=== PATIENT | male | born 1980 | race Two or more races ===

== ENCOUNTER 2025-09-11 18:32 | Emergency (ER) | payer MEDICAID, SELFPAY ==
[2025-09-11 18:33] VITALS: BMI 26.9
[2025-09-11 18:54] VITALS: BP 141/89; PULSE 102; RESP 18; TEMP 37.1; O2SAT 97
--- NOTE | 2025-09-11 19:31 | XR_ITS ---
Examination: CT abdomen and pelvis without contrast. Coronal 3-D reconstructions. Sagittal 2-D reconstructions. Date and time of exam: September 11, 2025, 195 hours INDICATIONS: Onset left flank pain beginning 2 days ago CTDI: vol (mGy): 6.08 DLP: (mGycm): 358 Technique: Axial images of the abdomen have been obtained, 3 mm slice thickness Intravenous contrast material has not been administered. Low dose protocols were performed. One or more of the following dose reduction techniques were used; automated exposure control, adjustment of the mA and/or KV according to patient size, use of iterative reconstruction technique. Findings: Fatty infiltration throughout the liver no focal liver or splenic lesions No gallstones No pancreatic or adrenal mass 9 mm mass with calcification posterior left kidney image 111 No renal or ureteral calculi, no hydronephrosis Aorta normal size Subcentimeter para-aortic lymph nodes Normal appendix Colonic diverticulosis Acute diverticulitis sigmoid colon no peridiverticular abscess Contracted urinary bladder IMPRESSION: Acute diverticulitis sigmoid colon, no peridiverticular abscess Recommend elective MRI abdomen kidneys follow-up to assess 9 mm mass posterior left kidney
--- NOTE | 2025-09-11 19:36 | PD.EDABDPN ---
ED Abdominal Pain RME/HPI General Chief Complaint: Abdominal Pain Stated complaint: LLQ ABD PAIN X2 DAYS WITH FEVER YESTERDAY Time seen by provider: 09/11/25 19:30 Arrival date/time: 09/11/25 18:32 45M with no significant PMH presents to ED with L flank pain for 2 days that is improved with urination. No dysuria/hematuria. Fever of 103 yesterday, but none today. No recent antipyretics. Patient denies groin pain. Limitations: no limitations Related Data Previous Rx's ?Medication ?Instructions ?Recorded amoxicillin 875 mg-potassium 1 tab PO BID 10 days #20 tabs 09/11/25 clavulanate 125 mg tablet ondansetron 4 mg disintegrating 4 mg PO Q8H PRN nausea and 09/11/25 tablet vomiting #14 tabs Allergies Allergy/AdvReac Type Severity Reaction Status Date / Time No Known Allergies Allergy Verified 09/11/25 18:35 Review of Systems Review of Systems Systems Reviewed: All systems reviewed, normal except as documented Genitourinary Genitourinary: Reports as per HPI and Reports flank pain Past Medical History Social History SMOKING STATUS: Never smoker ED Exam General Limitations: Present no limitations General appearance: Present alert and in no apparent distress Head Head exam: Present atraumatic Neck Neck exam: Present normal inspection, full ROM and trachea midline Chest Chest inspection: Present normal inspection and symmetric chest wall rise Abdominal Exam Abdominal exam: Present soft; Absent tenderness Back Exam Back exam: Present normal inspection and full ROM Neurological Exam Neurological exam: Present alert and oriented X3 Psychiatric Psychiatric exam: Present normal affect and normal mood Skin Skin exam: Present warm, dry, intact and normal color Course Quality Measures none Orders Category Date Time Status CT abdomen pelvis wo con Stat Exams 09/11/25 19:31 Completed CBC Stat Lab 09/11/25 19:34 Completed CMP [Comprehensive Metabolic Panel] Stat Lab 09/11/25 19:34 Completed Drug Screen,Urine Stat Lab 09/11/25 20:33 Received Lactate (Lactic Acid) Stat Lab 09/11/25 19:34 Completed Lipase Stat Lab 09/11/25 19:34 Completed Procalcitonin Stat Lab 09/11/25 19:34 Completed Urinalysis, C/S if Indicated Stat Lab 09/11/25 20:33 Completed Amoxicillin/Pot Clav 875 [Augmentin 875] Med 09/11/25 20:59 Discontinued 1 tab PO X1 ONE Vital Signs Vital signs: Vital Signs Temperature 98.7 F 09/11/25 18:54 Pulse Rate 102 H 09/11/25 18:54 Respiratory Rate 18 09/11/25 18:54 Blood Pressure 141/89 H 09/11/25 18:54 Pulse Oximetry (%) 97 09/11/25 18:54 Oxygen Delivery Method Room Air 09/11/25 18:54 O2 at 97% on RA and WNLs Abdominal Pain MDM MDM Narrative MDM Narrative:: 45M with no significant PMH presents to ED with L flank pain for 2 days that is improved with urination. No dysuria/hematuria. Fever of 103 yesterday, but none today. No recent antipyretics. Patient denies groin pain. Physical exam reveals no ab or CVA tenderness. Patient is afebrile, calm, and alert. CT diverticulitis w/ incidental finding of kidney mass. Moderate leukocytosis. Procal/lactate normal. UA clean though moderate dehydration. CMP unremarkable. Meds and certified travel counselor given, including to see PCP for outpatient MRI. Patient data External records reviewed:: None Clinical information provided by:: patient Social determinants that could affect healthcare access:: none Patient has the following chronic illnesses:: none How is presenting disease/condition affected by chronic disease/condition?: no chronic disease Evaluation data The following diagnostics were reviewed and interpreted by me:: lab results and radiology exam(s) Lab and/or radiology exams considered but not ordered:: ordered Interpretation Summary: above Medications / Prescriptions Medications or Prescriptions considered but not ordered:: ordered Medication administrations:: Medication Administration History Discontinued Medications Amoxicillin/Clavulanate Potassium (Amoxicillin/Pot Clav 875 Tablet) 1 tab PO X1 ONE Stop: 09/11/25 21:00 above Consultations Consultation(s) initiated? (list below): No Diagnosis Differential diagnosis abdominal pain: abdominal pain, acute appendicitis, calculus of kidney, constipation, diverticulitis, gastroenteritis, pancreatitis, small bowel obstruction and other (kidney mass) Most likely diagnosis given after review of the tests above:: diverticulitis and kidney mass Admission Indicated Admission indicated?: not indicated Admission Request Was there a request for admission?: No Disposition Plan Disposition Plan: Discharge Discharge Attestation Discharge Attestation: The patient and all family members were given an opportunity to ask questions and understood the discharge instructions. Discharge instructions specifically effects, indications for sooner follow up or return to the emergency department, and the expected course of current diagnosis. Patient condition: Stable Discharge Plan Plan Patient Disposition: HOME (Self Care) Discharge Disposition comment: Stable Prescriptions/Referrals Prescriptions/Med Rec: New ondansetron 4 mg tablet,disintegrating 4 mg PO Q8H PRN (Reason: nausea and vomiting) Qty: 14 0RF amoxicillin-pot clavulanate 875-125 mg tablet 1 tab PO BID 10 Days Qty: 20 0RF Referrals: No Primary/Family,Physician [Primary Care Provider] - In 1 week Problem List Clinical Impression: Diverticulitis, Kidney mass Patient/Caregiver Discharge Instructions Education Materials: ED Diverticulitis Additional Instructions: Please follow-up with PCP within 24-48 hours and return immediately if symptoms worsen. Ibuprofen/Tylenol can be used simultaneously for greater fever/pain control. F Keep hydrated. Advance diet as tolerated. Print Language: [place] Stand Alone Forms: Patient Portal Info Letter KATHY/JEROME Supervising Physician KATHY/JEROME Supervising Physician: Dr. De La Cruz
[2025-09-11 19:49] LABS: Lactate (Lactic Acid) 1.0 mMol/L (0.4-2.0)
[2025-09-11 19:50] LABS: Basophils # (Auto) 0.0 Thou/mm3 (0.0-0.2); Basophils % (Auto) 0 % (0-2.5); Eosinophils # (Auto) 0.0 Thou/mm3 (0.0-0.5); Eosinophils % (Auto) 0 % (0-10); Hematocrit 42.9 % (41.0-53.0); Hemoglobin 15.0 g/dL (13.5-16.0); Immature Granulocytes Auto 0.07 Thou/mm3 (0.00-0.00); Lymphocytes # (Auto) 2.1 Thou/mm3 (1.0-4.8); Lymphocytes % (Auto) 11 % (10-50); Mean Corpuscular HGB Conc 35.0 g/dl (31.0-37.0); Mean Corpuscular Hemoglobin 28.7 pg (25.0-35.0); Mean Corpuscular Volume 82 fL (80-100); Monocytes # (Auto) 1.3 Thou/mm3 (0.0-0.8); Monocytes % (Auto) 7 % (0-12); Neutrophils # (Auto) 15.0 Thou/mm3 (1.8-7.7); Neutrophils % (Auto) 81 % (37-80); Nucleated Red Blood Cell # 0.00 Thou/mm3 (0.00-0.00); Nucleated Red Blood Cell % 0 /100 WBC (0); Platelet Count 279 Thou/mm3 (140-440); RDW Standard Deviation 39.5 fL (35.1-43.9); Red Blood Count 5.23 Miln/mm3 (4.50-5.90); White Blood Count 18.5 Thou/mm3 (3.8-10.6)
[2025-09-11 20:17] LABS: Alanine Aminotransferase 24 U/L (10-49); Albumin, Serum 4.9 gm/dL (3.5-5.0); Albumin/Globulin Ratio 2.0 (1.2-2.2); Alkaline Phosphatase 107 U/L (46-116); Anion Gap 9 (7-16); Aspartate Amino Transferase 16 U/L (0-34); BUN/Creatinine Ratio 12 Ratio (12-20); Bilirubin,Total 1.1 mg/dL (0.3-1.2); Blood Urea Nitrogen 11 mg/dL (9-23); Calcium 9.2 mg/dL (8.3-10.6); Calcium (Corrected) 9.2 mg/dL (8.5-10.1); Carbon Dioxide 27.3 mMol/L (20.0-31.0); Chloride 104 mMol/L (98-107); Creatinine (Component) 0.9 mg/dL (0.6-1.3); Estimated Creatinine Clearance 92.4 mL/min (>60); Globulin 2.5 gm/dL (2.3-3.5); Glucose 113 mg/dL (74-106); Lipase 23 U/L (12-53); Osmolality,Calculated 279 (275-295); Potassium 3.8 mMol/L (3.4-5.1); Procalcitonin 0.08 ng/ml (0.0-0.49); Sodium 140 mMol/L (136-145); Total Protein 7.4 gm/dL (5.7-8.2); eGFR > 60 See Note
[2025-09-11 20:39] LABS: Collection Type, Urine Clean Catch; Squamous Epithelial Cell,Urine 0 /hpf (0-5)
[2025-09-11 20:48] LABS: Bilirubin,Urine Negative (Negative); Blood,Urine Negative (Negative); Clarity,Urine Clear (Clear/Hazy); Color,Urine Yellow (Lt Yel-Yel); Culture Indicated,Urine Not Indicated; Glucose, Urine Negative (Negative); Ketones,Urine 3+ (Negative); Leukocyte Esterase,Urine Negative (Negative); Nitrite,Urine Negative (Negative); PH,Urine 6.0 (5.0-7.0); Protein,Urine 2+ (Neg - Trace); RBC,Urine 9 /hpf (0-3); Specific Gravity,Urine 1.049 (1.001-1.035); Urobilinogen,Urine 2.0 mg/dL (0.0-1.0); WBC,Urine 2 /hpf (0-5)
[2025-09-11 20:58] VITALS: BP 127/86; PULSE 102; RESP 18; TEMP 36.9; O2SAT 96
[2025-09-11] MEDS: AMOXICILLIN/POT CLAV 875 TABLET 1 TAB PO (21:14)
[2025-09-11 21:58] LABS: Amphetamine/Methamp Scrn,U Negative (Negative); Barbiturate Screen,Urine Negative (Negative); Benzodiazepines Screen,Urine Negative (Negative); Benzoylecgonine Screen, Ur Negative (Negative); Fentanyl Screen,Urine Negative (Negative); Opiate Screen,Urine Negative (Negative); THC Screen,Urine Negative (Negative)
== END 2025-09-11 21:37 | disposition home or self-care (01) ==
PROVIDERS: Physician Assistant; Emergency Provider Emergency Medicine
DX: K57.32 Diverticulitis of large intestine without perforation or abscess without bleeding (principal); N28.89 Other specified disorders of kidney and ureter
CPT/HCPCS: 36415; 74176; 80053; 80307; 81001; 83605; 83690; 84145; 85025; 99283; A9270